=== PATIENT | male | born 1955 | race Caucasian/White ===

== ENCOUNTER 2017-04-02 07:03 | Day surgery (SDC) | payer BC ==
[2017-04-02] MEDS ORDERED: ACETAZOLAMIDE 250 MG PO ONE (07:14)
[2017-04-02] MEDS: PROPARACAINE HCL 0.5% OPHTHALMIC SOL ONE ×3 (07:26→08:54)
[2017-04-02] MEDS: CYCLOPENTOLATE 1% SOL ONE ×2 (07:26→07:38)
[2017-04-02] MEDS: PHENYLEPHRINE HCL 10% OPHTHAL SOL ONE ×2 (07:27→07:38)
[2017-04-02] MEDS: KETOROLAC 0.5% OPTH 60 DROP SOL ONE ×2 (07:27→07:39)
[2017-04-02] MEDS ORDERED: MIDAZOLAM 2 MG/2 ML SOL ONE (07:47)
[2017-04-02] MEDS ORDERED: TRIAMCINOLONE ACETONIDE 10 MG/ML VIAL ONE (08:37)
[2017-04-02] MEDS ORDERED: BSS 500 ML 500 ML IR ONE (08:38)
[2017-04-02] MEDS ORDERED: POVIDONE IODINE 5% SOL ONE (08:38)
[2017-04-02] MEDS ORDERED: LIDOCAINE HCL 1% MPF SOL ONE (08:38)
[2017-04-02 09:22] VITALS: O2SAT 97
== END 2017-04-02 09:39 | disposition home or self-care (01) ==
LOC: SURG 07:03
PROVIDERS: ATTEND Ophthalmology
DX: H25.9 Unspecified age-related cataract (principal)
CPT/HCPCS: J2250; A9270-GY; J2001